=== PATIENT | female | born 1995 ===

== ENCOUNTER 2021-11-11 11:00 | Outpatient (CLI) | payer OTHER | END 2021-11-11 12:25 | disposition home or self-care (01) | LOC: PRENATAL 11:00 | PROVIDERS: ATTEND Obstetrics & Gynecology Maternal & Fetal Medicine | DX: O26.849 Uterine size-date discrepancy, unspecified trimester (principal); O43.90 Unspecified placental disorder, unspecified trimester; O26.859 Spotting complicating pregnancy, unspecified trimester; Z3A.15 15 weeks gestation of pregnancy ==